=== PATIENT | male | born 1965 | race Caucasian/White ===

== ENCOUNTER 2018-04-02 19:25 | Observation (INO) | payer MEDICARE, MEDICAID ==
[2018-04-02] MEDS ORDERED: Alum-Mag Hydrox-Simethicone Susp (30 mL) PO STA (20:18)
--- NOTE | 2018-04-02 20:18 | C.PDOC ---
History Of Present Illness Patient is a 52 year old male, with a PMHx of a renal transplant in 2017, who presents to the ED for nausea and vomiting for the past 3 days. He states that he also cannot hold down any PO intake. Patient is blind and is an [employer] ontrolled diabetic living at home. Patient denies any fever, chills, diarrhea, abdominal pain, SOB, or CP. Time Seen by Provider: 04/02/18 20:06 Chief Complaint (Nursing): Abdominal Pain History Per: Patient History/Exam Limitations: no limitations Onset/Duration Of Symptoms: Days (3) Current Symptoms Are (Timing): Still Present Associated Symptoms: Nausea, Vomiting. denies: Fever, Chills, Diarrhea, Chest Pain Recent travel outside of the [place]: No Additional History Per: Patient Past Medical History Reviewed: Historical Data, Nursing Documentation, Vital Signs Vital Signs: Last Vital Signs Temp 97.8 F 04/02/18 19:31 Pulse 79 04/02/18 19:31 Resp 18 04/02/18 19:31 BP 163/79 H 04/02/18 19:31 Pulse Ox 99 04/02/18 19:31 - Medical History PMH: HTN, Hypercholesterolemia Surgical History: No Surg Hx Family History: States: No Known Family Hx - Social History Hx Alcohol Use: No Hx Substance Use: No - Immunization History Hx Tetanus Toxoid Vaccination: No Hx Influenza Vaccination: Yes Hx Pneumococcal Vaccination: Yes Review Of Systems Constitutional: Negative for: Fever, Chills Cardiovascular: Negative for: Chest Pain Respiratory: Negative for: Shortness of Breath Gastrointestinal: Positive for: Nausea, Vomiting. Negative for: Abdominal Pain, Diarrhea Physical Exam - Physical Exam Appears: Non-toxic, No Acute Distress, Other (blind ) Skin: Normal Color, Warm, Dry Head: Atraumatic, Normacephalic Oral Mucosa: Dry Neck: Normal ROM, Supple Chest: Symmetrical, No Deformity Cardiovascular: Rhythm Regular, No Murmur Respiratory: Normal Breath Sounds, No Rales, No Rhonchi, No Wheezing Gastrointestinal/Abdominal: Soft, No Tenderness, Other (larged healed surgical scar RLQ ) Extremity: Normal ROM Neurological/Psych: Normal Speech, Normal Cognition ED Course And Treatment - Laboratory Results Result Diagrams: 04/05/18 06:48 04/05/18 06:48 O2 Sat by Pulse Oximetry: 99 (on RA) Pulse Ox Interpretation: Normal Medical Decision Making Medical Decision Making: Plan: EKG Labs CXR Urinalysis Protonix 40mg IVP Zofran 4mg IVP Maalox 30ml PO Disposition Doctor Will See Patient In The: Hospital Counseled Patient/Family Regarding: Studies Performed, Diagnosis - Disposition Disposition: HOSPITALIZED Disposition Time: 23:00 Condition: GOOD - Clinical Impression Clinical Impression: Abdominal pain - Scribe Statement The provider has reviewed the documentation as recorded by the Igor Mckenzie All medical record entries made by the Igor were at my direction and personally dictated by me. I have reviewed the chart and agree that the record accurately reflects my personal performance of the history, physical exam, medical decision making, and the department course for this patient. I have also personally directed, reviewed, and agree with the discharge instructions and disposition.
[2018-04-02] MEDS ORDERED: Alum-Mag Hydrox-Simethicone Susp (30 mL) ONE (20:29)
[2018-04-02 20:30] LABS: BASO # 0.1 K/uL (0.0-0.2); EOS # 0.1 K/uL (0.0-0.7); EOS % 1.1 % (0.0-4.0); HEMOGLOBIN 15.3 g/dL (12.0-18.0); LYMPH # 0.4 K/uL (1.0-4.3); LYMPH % 5.3 % (20.0-40.0); MEAN CELL VOLUME 85.9 fL (80.0-94.0); MEAN CORPUSCULAR HGB CONC 32.6 g/dL (33.0-37.0); MEAN PLATELET VOLUME 9.5 fL (7.2-11.7); MONO # 0.7 K/uL (0.0-0.8); MONO % 8.5 % (0.0-10.0); NEUT # 6.8 K/uL (1.8-7.0); NEUT % 84.1 % (50.0-75.0); PLATELET COUNT 185 K/uL (130-400); RBC 5.46 Mil/uL (4.40-5.90); RED CELL DISTRIBUTION WIDTH 14.1 % (11.5-14.5)
[2018-04-02 20:38] LABS: PROTHROMBIN TIME 11.1 SECONDS (9.7-12.2)
[2018-04-02 20:43] LABS: BLOOD UREA NITROGEN 24 mg/dL (9-20); CALCIUM 10.3 mg/dl (8.6-10.4); GFR NON-AFRICAN AMERICAN 58
[2018-04-02 20:55] LABS: B-TYPE NATRIURETIC PEPTIDE 89.2 pg/mL (0-900)
[2018-04-02 21:01] LABS: ALB/GLOB RATIO 1.4 (1.0-2.1); ALBUMIN 4.7 g/dL (3.5-5.0); ALT/SGPT 28 U/L (21-72); AST/SGOT 51 U/L (17-59)
[2018-04-02] MEDS ORDERED: Sodium Chloride 0.9% 1,000 ML IV ONE (21:38)
[2018-04-02] MEDS ORDERED: Sodium Chloride 0.9% 1,000 ML ONE (21:57)
[2018-04-02 22:16] LABS: PLATELET ESTIMATE NORMAL (NORMAL)
[2018-04-02 22:18] LABS: ANISOCYTOSIS SLIGHT; BASOPHIL 1 % (0-2); EOSINOPHIL 2 % (0-4); HYPOCHROMIC SLIGHT; LYMPHOCYTE 6 % (20-40); MONOCYTE 8 % (0-10); NEUTROPHIL 83 % (50-75); POIKILOCYTOSIS SLIGHT; SPHEROCYTES SLIGHT; TOTAL CELLS COUNTED 100
[2018-04-02 22:19] LABS: HYPERSEGMENTATION PRESENT; LARGE PLATELETS PRESENT; SMUDGE CELLS PRESENT
[2018-04-02] MEDS: Sodium Chloride 0.9% 1,000 ML IV SCH (22:26)
[2018-04-02] MEDS ORDERED: Home Med 1 UNIT (Atorvastatin [Lipitor] 10 MG) PO SCH (23:00)
[2018-04-02] MEDS ORDERED: SODIUM BICARBONATE 650 MG PO SCH (23:00)
[2018-04-02] MEDS ORDERED: MYCOPHENOLATE SODIUM PO SCH (23:00)
[2018-04-03] MEDS: Insulin Detemir 100 units/ml Vial (Levemir) SC SCH ×2 (00:26→22:10)
[2018-04-03] MEDS: Metoprolol Succinate 50 mg XL Tab PO SCH ×3 (00:27→18:09)
[2018-04-03 06:47] LABS: BASO % 0.6 % (0.0-2.0); EOS % 0.6 % (0.0-4.0); LYMPH # 0.4 K/uL (1.0-4.3); LYMPH % 6.3 % (20.0-40.0); MEAN CELL VOLUME 86.5 fL (80.0-94.0); MEAN CORPUSCULAR HEMOGLOBIN 28.8 pg (27.0-31.0); MEAN CORPUSCULAR HGB CONC 33.3 g/dL (33.0-37.0); MEAN PLATELET VOLUME 9.3 fL (7.2-11.7); MONO # 0.7 K/uL (0.0-0.8); MONO % 10.2 % (0.0-10.0); NEUT # 5.8 K/uL (1.8-7.0); NEUT % 82.3 % (50.0-75.0); PLATELET COUNT 145 K/uL (130-400); RBC 4.15 Mil/uL (4.40-5.90); RED CELL DISTRIBUTION WIDTH 14.2 % (11.5-14.5)
[2018-04-03 07:06] LABS: ALB/GLOB RATIO 1.4 (1.0-2.1); ALBUMIN 3.1 g/dL (3.5-5.0); ALT/SGPT 37 U/L (21-72); AST/SGOT 18 U/L (17-59); BLOOD UREA NITROGEN 19 mg/dL (9-20); CALCIUM 8.3 mg/dl (8.6-10.4); GFR NON-AFRICAN AMERICAN > 60
[2018-04-03] MEDS ORDERED: Glucagon Recombinant 1 mg Inj IM PRN (07:14)
[2018-04-03] MEDS ORDERED: Dextrose 50% SYRINGE Inj (50 ml) IV PRN (07:14)
--- NOTE | 2018-04-03 07:17 | CP.PCM.PN ---
Subjective - Date & Time of Evaluation Date of Evaluation: 04/03/18 Time of Evaluation: 08:00 - Subjective Subjective: Medicine Progress Note for Dr. Argueta: Patient was seen and examined at bedside. Patient states he has been feeling nauseated for the past 2 days with vomiting. Patient states he has been having heartburn as well. Patient denies shortness of breath, chest pain, chills, fever, diarrhea and constipation. Objective - Vital Signs/Intake and Output Vital Signs (last 24 hours): Temp Pulse Resp BP Pulse Ox 97.4 F L 103 H 20 154/75 H 99 04/03/18 04:00 04/03/18 04:00 04/03/18 04:00 04/03/18 04:00 04/03/18 04:00 Intake and Output: 04/03/18 04/03/18 06:59 18:59 Intake Total 800 Output Total 500 Balance 300 - Medications Medications: Current Medications Dextrose (Glutose 15) 0 gm PO ONCE PRN; Protocol PRN Reason: Hypoglycemia Protocol Dextrose (Dextrose 50% Inj) 0 ml IV STAT PRN; Protocol PRN Reason: Hypoglycemia Protocol Glucagon (Glucagen Diagnostic Kit) 0 mg IM STAT PRN; Protocol PRN Reason: Hypoglycemia Protocol Home Med (Mycophenolate Sodium [Mycophenolic Acid]) 4 tab PO BID [facility] Last Admin: 04/03/18 00:51 Dose: Not Given Sodium Chloride (Sodium Chloride 0.9%) 1,000 mls @ 100 mls/hr IV .Q10H ONE Stop: 04/03/18 07:37 Last Admin: 04/02/18 21:56 Dose: 100 mls/hr Sodium Chloride (Sodium Chloride 0.9%) 1,000 mls @ 100 mls/hr IV .Q10H [facility] Last Admin: 04/02/18 22:26 Dose: 100 mls/hr Dextrose (Dextrose 5% In Water 1000 Ml) 1,000 mls @ 0 mls/hr IV .Q0M PRN; Protocol PRN Reason: Hypoglycemia Protocol Insulin Aspart (Novolog) 15 unit SC AC [facility] Insulin Detemir (Levemir) 50 unit SC HS [facility] Last Admin: 04/03/18 00:26 Dose: Not Given Magnesium Oxide (Mag-Ox) 400 mg PO DAILY [facility] Metoprolol Succinate (Toprol Xl) 50 mg PO BID [facility] Last Admin: 04/03/18 00:27 Dose: Not Given Multivitamins (Hexavitamin) 1 tab PO DAILY [facility] Ondansetron HCl (Zofran Inj) 4 mg IVP Q8H PRN PRN Reason: Nausea/Vomiting Pantoprazole Sodium (Protonix Inj) 40 mg IVP DAILY [facility] Prednisone (Prednisone Tab) 5 mg PO DAILY [facility] Rosuvastatin Calcium (Crestor) 5 mg PO HS [facility] Sodium Bicarbonate (Sodium Bicarbonate Tab) 650 mg PO BID [facility] Tacrolimus (Prograf Cap) 2 mg PO BID [facility] Last Admin: 04/03/18 00:26 Dose: Not Given Trimethoprim/Sulfamethoxazole (Bactrim Ss Tab) 1 tab PO MWF [facility]; Protocol - Labs Labs: 04/03/18 06:40 04/03/18 06:40 PT 11.1 SECONDS (9.7-12.2) 04/02/18 20:23 INR 1.0 04/02/18 20:23 APTT 28 SECONDS (21-34) 04/02/18 20:23 - Constitutional Appears: Agitated - Head Exam Head Exam: ATRAUMATIC, NORMAL INSPECTION - Eye Exam Additional comments: patient is legally blind in both eyes - Respiratory Exam Respiratory Exam: Clear to Ausculation Bilateral, NORMAL BREATHING PATTERN - Cardiovascular Exam Cardiovascular Exam: REGULAR RHYTHM, +S1, +S2 - GI/Abdominal Exam GI & Abdominal Exam: Soft, Tenderness (epigastric tenderness ), Normal Bowel Sounds - Extremities Exam Extremities Exam: Normal Inspection Additional comments: AV fistula in left UE - Neurological Exam Neurological Exam: Alert, Awake, Oriented x3 - Psychiatric Exam Psychiatric exam: Anxious - Skin Skin Exam: Normal Color Assessment and Plan - Assessment and Plan (Free Text) Assessment: Nausea/Vomiting - likely secondary to GERD - Medications: * Zofran 4mg IV q8prn * Protonix 40mg IV daily History of Right Renal Transplant - Completed in October 2017 - [facility]; previous appointment was last 03/29/18 - Oupatient bowling alley refinisher is Dr. Justice Menon - Nephrology Consult: Dr. Dyson --> help appreciated - Continue home Medications: * Mycophenolate 1000mg bid * Prednisone 5mg po daily * Tacrolimus 2mg po bid * Bactrim 1tab MWF History of Diabetes Type II - Continue home medications: * Levemir 50 units HS * Novolog 5 units AC * ISS- moderate - Accuchecks; Hypoglycemia Protocol History of HTN - Continue home medications: * Metoprolol Succinate 50mg bid History of HLD - Continue home medications * Crestor 5mg po HS Legally Blind - bilaterally eyes Prophylaxis: - Heparin 5,000 units SC q12h - SCDs Case discussed with Dr. Kendall Millan PGY-2
[2018-04-03] MEDS ORDERED: INSULIN LISPRO 15 UNIT SQ SCH (07:30)
[2018-04-03 07:36] LABS: URINE BILIRUBIN NEGATIVE (NEGATIVE); URINE BLOOD NEGATIVE (NEGATIVE); URINE CLARITY Clear (Clear); URINE COLOR Yellow (YELLOW); URINE GLUCOSE (UA) 3+ mg/dL (Normal); URINE LEUKOCYTE ESTERASE NEG Leu/uL (Negative); URINE PROTEIN NEGATIVE (NEGATIVE); URINE UROBILINOGEN NORMAL mg/dL (0.2-1.0)
[2018-04-03] MEDS: (Novolog) Insulin Aspart, Recombinant 100 u/ml 10 ml vial SC SCH ×4 (07:54→17:32)
[2018-04-03] MEDS: Sodium Chloride 0.9% 1,000 ML IV SCH ×2 (08:25→18:15)
[2018-04-03 09:12] LABS: ANISOCYTOSIS SLIGHT; LYMPHOCYTE 6 % (20-40); MONOCYTE 7 % (0-10); NEUTROPHIL 87 % (50-75); PLATELET ESTIMATE NORMAL (NORMAL); POIKILOCYTOSIS SLIGHT; TOTAL CELLS COUNTED 100
[2018-04-03] MEDS: Magnesium Oxide 400 mg Tab UD PO SCH (09:12)
[2018-04-03 09:13] LABS: BURR CELLS SLIGHT; HYPOCHROMIC SLIGHT; LARGE PLATELETS PRESENT; OVALOCYTES SLIGHT
[2018-04-03] MEDS: Multiple Vitamins Tab PO SCH (09:13)
[2018-04-03] MEDS ORDERED: MYCOPHENOLATE SODIUM PO SCH (10:00)
[2018-04-03] MEDS ORDERED: MULTIVITAMIN PO SCH (10:00)
--- NOTE | 2018-04-03 10:30 | RAD ---
Chest x-ray single frontal view History: Shortness of breath. Comparison: None available. Findings: Mild venous congestion. Mild patchy increased markings at the lung bases. Cardiomegaly. Tortuous ectatic aorta. Degenerative changes in the spine and shoulders. Impression: Mild venous congestion. Mild patchy increased markings at the lung bases. Cardiomegaly. Tortuous ectatic aorta. Degenerative changes in the spine and shoulders.
--- NOTE | 2018-04-03 12:16 | CARD ---
APPROVED REPORT Date of service: 04/02/2018 EKG Measurement Heart [id number] <Conclusion> Normal sinus rhythm Biatrial enlargement Abnormal ECG
[2018-04-03] MEDS: (Novolin R) Insulin Human Regular 100 units/ml vial SC SCH ×3 (12:36→21:13)
--- NOTE | 2018-04-03 22:16 | CON ---
DATE: 04/03/2018 ATTENDING PHYSICIAN: Huyen Argueta MD HISTORY OF PRESENT ILLNESS: Mr. Winnie Broderick is a 52-year-old male, who is being seen for management of a kidney transplant. Mr. Broderick has a long history of diabetes and hypertension, on dialysis for 5 years when he received a kidney transplant in 12/2017. He was recently seen at the clinic at [facility] in [place] and he was told everything was okay. Two days ago, he ate very spicy beans and subsequently developed burning in both his abdomen and chest with nausea and vomiting. This persisted for the next 24 hours. He came to the emergency room and was admitted on the 04/02/2018. His white count was 8000, hemoglobin 15.3, hematocrit 46.9; glucose was 292, sodium 137, potassium 5.3, chloride 102, CO2 of 24, BUN 24, creatinine 1.3, albumin 47. Today his white count 7000, hemoglobin 35.9; sodium 136, potassium 4.1, chloride 110, CO2 of 19, BUN 19, creatinine 1, glucose 278, calcium 8.3, albumin 3.1. Urine showed 3+ glucose, negative for protein and negative for blood. PAST MEDICAL HISTORY: Please see the above. Diabetic retinopathy with blindness. He denies myocardial infarction, stroke or neuropathy. He has been admitted to [facility]. ALLERGIES: HE HAS NO ALLERGIES. MEDICATIONS: His medications include insulin, magnesium, metoprolol, multivitamins, Protonix, prednisone, Crestor, sodium bicarbonate, Prograf, Bactrim. FAMILY HISTORY: Positive for diabetes, hypertension. SOCIAL HISTORY: Negative for alcohol or drug abuse. He does not smoke. REVIEW OF SYSTEMS: He denied chills, although he stated he felt hot. There was no chest pain. There was no cough. He did not have any diarrhea. He denied dysuria or orthostatic symptoms. PHYSICAL EXAMINATION: GENERAL: He was awake and alert, in no acute distress. VITAL SIGNS: His temperature was 98.1, his blood pressure was 138/81, his pulse was 107. NECK: There was no jugular venous fashion at 30 degrees. LUNGS: Clear. HEART: Rhythm was regular. ABDOMEN: Soft and nontender. The graft in the right lower quadrant was enlarged or tender. EXTREMITIES: There was no CVA tenderness or presacral edema and he moved all his extremities. IMPRESSION: Post kidney transplant, diabetic nephropathy, hypertension, diabetic retinopathy, and gastroenteritis. RECOMMENDATIONS: Agree with IV fluids with normal saline. We will review home meds to make sure he is not on CellCept or Myfortic, will maintain present immunosuppression with prednisone and Prograf. We will check tacrolimus levels. Thank you for your kind referral. We will continue to follow with you. Harry Zimmer MD
--- NOTE | 2018-04-04 06:17 | HP ---
HISTORY OF PRESENT ILLNESS: This is a 52-year-old male with history of diabetes, history of kidney transplant with chief complaint of nausea, vomiting, intractable following eating some lentils. The patient came to ER, failed emergency room management, advised admission. PHYSICAL EXAMINATION: GENERAL: The patient is awake, alert, and oriented. VITAL SIGNS: Temperature 98, pulse 90. HEENT: Within normal limits. NECK: Supple. CHEST: Symmetrical. HEART: Regular. ABDOMEN: Tender . EXTREMITIES: No edema. He has a scar from his previous surgery. IMPRESSION AND PLAN: The patient suffers from gastritis, status post kidney transplant, diabetes. The patient is to get bedrest, supportive care, IV fluids, antiemetics. Nephrology consult. Huyen Argueta MD
[2018-04-04] MEDS: Sodium Chloride 0.9% 1,000 ML IV SCH ×2 (06:31→18:19)
[2018-04-04 06:45] LABS: BASO % 0.9 % (0.0-2.0); EOS # 0.1 K/uL (0.0-0.7); HEMOGLOBIN 13.7 g/dL (12.0-18.0); LYMPH # 0.5 K/uL (1.0-4.3); LYMPH % 9.3 % (20.0-40.0); MEAN CELL VOLUME 86.2 fL (80.0-94.0); MEAN CORPUSCULAR HEMOGLOBIN 28.4 pg (27.0-31.0); MEAN PLATELET VOLUME 9.4 fL (7.2-11.7); MONO # 0.6 K/uL (0.0-0.8); MONO % 10.6 % (0.0-10.0); NEUT # 4.2 K/uL (1.8-7.0); NEUT % 77.2 % (50.0-75.0); NRBC % 0.1 % (0.0-2.0); PLATELET COUNT 165 K/uL (130-400); RBC 4.81 Mil/uL (4.40-5.90); RED CELL DISTRIBUTION WIDTH 14.4 % (11.5-14.5); WHITE BLOOD COUNT 5.5 K/uL (4.8-10.8)
[2018-04-04 06:59] LABS: ALB/GLOB RATIO 1.6 (1.0-2.1); ALBUMIN 3.7 g/dL (3.5-5.0); ALT/SGPT 28 U/L (21-72); AST/SGOT 26 U/L (17-59); BLOOD UREA NITROGEN 14 mg/dL (9-20); CALCIUM 9.7 mg/dl (8.6-10.4); GFR NON-AFRICAN AMERICAN > 60; HDL CHOLESTEROL 35 mg/dL (30-70)
[2018-04-04 07:09] LABS: LDL CHOLESTEROL 58 mg/dL (0-129)
[2018-04-04] MEDS: (Novolog) Insulin Aspart, Recombinant 100 u/ml 10 ml vial SC SCH ×3 (07:30→18:14)
--- NOTE | 2018-04-04 07:35 | CP.PCM.PN ---
Subjective - Date & Time of Evaluation Date of Evaluation: 04/04/18 Time of Evaluation: 07:30 - Subjective Subjective: Progress note for Dr. Argueta Patient was seen and examined at bedside in no acute distress. Patient reports feeling better, but still has a burning sensation in his stomach/chest after eating. He states medication has been helping. The patient denies chest pain, palpitations, dyspnea, nausea, vomiting, fevers, headaches, leg pain. No acute events overnight per nursing. Objective - Vital Signs/Intake and Output Vital Signs (last 24 hours): Temp Pulse Resp BP Pulse Ox 97.8 F 90 20 141/79 98 04/03/18 23:05 04/03/18 23:05 04/03/18 23:05 04/03/18 23:05 04/03/18 23:05 Intake and Output: 04/04/18 04/04/18 06:59 18:59 Intake Total 1200 Output Total 800 Balance 400 - Medications Medications: Current Medications Dextrose (Glutose 15) 0 gm PO ONCE PRN; Protocol PRN Reason: Hypoglycemia Protocol Dextrose (Dextrose 50% Inj) 0 ml IV STAT PRN; Protocol PRN Reason: Hypoglycemia Protocol Glucagon (Glucagen Diagnostic Kit) 0 mg IM STAT PRN; Protocol PRN Reason: Hypoglycemia Protocol Heparin Sodium (Porcine) (Heparin) 5,000 units SC Q12 [facility] Last Admin: 04/03/18 21:31 Dose: 5,000 units Sodium Chloride (Sodium Chloride 0.9%) 1,000 mls @ 100 mls/hr IV .Q10H [facility] Last Admin: 04/04/18 06:31 Dose: 100 mls/hr Dextrose (Dextrose 5% In Water 1000 Ml) 1,000 mls @ 0 mls/hr IV .Q0M PRN; Protocol PRN Reason: Hypoglycemia Protocol Insulin Aspart (Novolog) 15 unit SC AC [facility] Last Admin: 04/03/18 17:32 Dose: Not Given Insulin Detemir (Levemir) 50 unit SC HS [facility] Last Admin: 04/03/18 22:10 Dose: 50 units Insulin Human Regular (Novolin R) 0 unit SC ACHS [facility]; Protocol Last Admin: 04/03/18 21:13 Dose: Not Given Magnesium Oxide (Mag-Ox) 400 mg PO DAILY [facility] Last Admin: 04/03/18 09:12 Dose: 400 mg Metoprolol Succinate (Toprol Xl) 50 mg PO BID [facility] Last Admin: 04/03/18 18:09 Dose: 50 mg Multivitamins (Hexavitamin) 1 tab PO DAILY [facility] Last Admin: 04/03/18 09:13 Dose: 1 tab Mycophenolate Mofetil (Cellcept) 1,000 mg PO BID [facility] Last Admin: 04/03/18 21:27 Dose: 1,000 mg Ondansetron HCl (Zofran Inj) 4 mg IVP Q8H PRN PRN Reason: Nausea/Vomiting Last Admin: 04/03/18 09:13 Dose: 4 mg Pantoprazole Sodium (Protonix Inj) 40 mg IVP DAILY [facility] Last Admin: 04/03/18 09:13 Dose: 40 mg Prednisone (Prednisone Tab) 5 mg PO DAILY [facility] Last Admin: 04/03/18 09:13 Dose: 5 mg Rosuvastatin Calcium (Crestor) 5 mg PO HS [facility] Last Admin: 04/03/18 21:28 Dose: 5 mg Sodium Bicarbonate (Sodium Bicarbonate Tab) 650 mg PO BID [facility] Last Admin: 04/03/18 18:05 Dose: 650 mg Tacrolimus (Prograf Cap) 2 mg PO BID [facility] Last Admin: 04/03/18 21:28 Dose: 2 mg Trimethoprim/Sulfamethoxazole (Bactrim Ss Tab) 1 tab PO [facility] [place]; Protocol - Labs Labs: 04/04/18 06:32 04/04/18 06:32 PT 11.1 SECONDS (9.7-12.2) 04/02/18 20:23 INR 1.0 04/02/18 20:23 APTT 28 SECONDS (21-34) 04/02/18 20:23 - Constitutional Appears: No Acute Distress - Head Exam Head Exam: ATRAUMATIC, NORMAL INSPECTION - Eye Exam Additional comments: Blind bilaterally - ENT Exam ENT Exam: Mucous Membranes Moist - Respiratory Exam Respiratory Exam: Clear to Ausculation Bilateral, NORMAL BREATHING PATTERN. absent: Rhonchi, Wheezes, Respiratory Distress - Cardiovascular Exam Cardiovascular Exam: REGULAR RHYTHM, +S1, +S2 - GI/Abdominal Exam GI & Abdominal Exam: Soft, Tenderness (epigastric, mild), Normal Bowel Sounds. absent: Distended, Firm, Guarding - Extremities Exam Extremities Exam: Normal Inspection. absent: Pedal Edema, Tenderness - Neurological Exam Neurological Exam: Alert, Awake, Oriented x3 - Psychiatric Exam Psychiatric exam: Normal Affect, Normal Mood - Skin Skin Exam: Dry, Normal Color, Warm Assessment and Plan - Assessment and Plan (Free Text) Plan: Nausea/Vomiting - likely secondary to GERD - Medications: * Zofran 4mg IV q8prn * Protonix 40mg IV daily History of Right Renal Transplant - Completed in October 2017 - [facility]; previous appointment was last 03/29/18 - Oupatient president educational institution is Dr. Justice Menon - Nephrology Consult: Dr. Dyson --> help appreciated * Per president educational institution: aggressive IVFs, continue immunosuppression w/ prednisone and prograf * Tacrolimus levels: f/u - Continue home Medications: * Mycophenolate 1000mg bid * Prednisone 5mg po daily * Tacrolimus 2mg po bid * Bactrim 1tab MWF History of Diabetes Type II - Continue home medications: * Levemir 50 units HS * Novolog 15 units AC * ISS- moderate - Accuchecks; Hypoglycemia Protocol - A1c: 8.3 History of HTN - Continue home medications: Metoprolol Succinate 50mg bid History of HLD - Continue home medications: Crestor 5mg po HS - TG 159, Chol 107, LDL 58, HDL 35 Legally Blind - Bilaterally Prophylaxis: - Heparin 5,000 units SC q12h. SCDs - GI: Protonix 40mg IV daily Case discussed with and patient seen with Dr. Kendall Marshall, PGY2
[2018-04-04] MEDS: (Novolin R) Insulin Human Regular 100 units/ml vial SC SCH ×4 (08:17→21:24)
[2018-04-04 08:29] LABS: EOSINOPHIL 2 % (0-4); LYMPHOCYTE 9 % (20-40); TOTAL CELLS COUNTED 100
[2018-04-04 08:30] LABS: HYPOCHROMIC SLIGHT; MONOCYTE 12 % (0-10); NEUTROPHIL 77 % (50-75); OVALOCYTES SLIGHT; PLATELET ESTIMATE NORMAL (NORMAL)
[2018-04-04] MEDS ORDERED: Tmp-Smz 400 mg-80 mg SS Tab PO SCH (09:00)
[2018-04-04] MEDS: Metoprolol Succinate 50 mg XL Tab PO SCH ×2 (09:24→18:22)
[2018-04-04] MEDS: Magnesium Oxide 400 mg Tab UD PO SCH (09:24)
[2018-04-04] MEDS: Multiple Vitamins Tab PO SCH (09:24)
[2018-04-04] MEDS ORDERED: Dorzolamide 2% Opht Sol 10ml OU SCH (18:00)
[2018-04-04] MEDS: Insulin Detemir 100 units/ml Vial (Levemir) SC SCH (21:29)
[2018-04-04] MEDS ORDERED: Latanoprost 2.5 ml Opht Soln OU SCH (22:00)
[2018-04-05 01:17] VITALS: RESP 20
[2018-04-05 01:21] VITALS: TEMP 98.1
[2018-04-05] MEDS: Sodium Chloride 0.9% 1,000 ML IV SCH ×2 (04:21→10:43)
[2018-04-05 07:24] LABS: BASO % 0.9 % (0.0-2.0); EOS # 0.1 K/uL (0.0-0.7); EOS % 2.5 % (0.0-4.0); HEMOGLOBIN 12.5 g/dL (12.0-18.0); LYMPH # 0.4 K/uL (1.0-4.3); LYMPH % 9.2 % (20.0-40.0); MEAN CELL VOLUME 86.5 fL (80.0-94.0); MEAN CORPUSCULAR HEMOGLOBIN 28.7 pg (27.0-31.0); MEAN CORPUSCULAR HGB CONC 33.1 g/dL (33.0-37.0); MEAN PLATELET VOLUME 9.4 fL (7.2-11.7); MONO # 0.6 K/uL (0.0-0.8); MONO % 12.1 % (0.0-10.0); NEUT # 3.6 K/uL (1.8-7.0); NEUT % 75.3 % (50.0-75.0); NRBC % 0.1 % (0.0-2.0); PLATELET COUNT 154 K/uL (130-400); RBC 4.35 Mil/uL (4.40-5.90); WHITE BLOOD COUNT 4.8 K/uL (4.8-10.8)
[2018-04-05 07:28] LABS: ALB/GLOB RATIO 1.2 (1.0-2.1); ALBUMIN 2.3 g/dL (3.5-5.0); ALT/SGPT 25 U/L (21-72); AST/SGOT 15 U/L (17-59); BLOOD UREA NITROGEN 12 mg/dL (9-20); GFR NON-AFRICAN AMERICAN > 60
--- NOTE | 2018-04-05 07:30 | CP.PCM.PN ---
Subjective - Date & Time of Evaluation Date of Evaluation: 04/05/18 Time of Evaluation: 07:28 - Subjective Subjective: Progress note for Dr. Argueta Patient was seen and examined at bedside in no acute distress. He says he is "feeling much better than yesterday". The patient denies chest pain, palpitations, dyspnea, nausea, vomiting, fevers, headaches, leg pain. No acute events overnight per nursing. Objective - Vital Signs/Intake and Output Vital Signs (last 24 hours): Temp Pulse Resp BP Pulse Ox 98.1 F 88 20 113/70 98 04/04/18 23:15 04/04/18 23:15 04/04/18 23:15 04/04/18 23:15 04/04/18 23:15 Intake and Output: 04/05/18 04/05/18 06:59 18:59 Intake Total 1100 Output Total 400 Balance 700 - Medications Medications: Current Medications Dextrose (Glutose 15) 0 gm PO ONCE PRN; Protocol PRN Reason: Hypoglycemia Protocol Dextrose (Dextrose 50% Inj) 0 ml IV STAT PRN; Protocol PRN Reason: Hypoglycemia Protocol Dorzolamide HCl (Trusopt) 1 ml OU BID [facility] Last Admin: 04/04/18 21:33 Dose: 1 drop Glucagon (Glucagen Diagnostic Kit) 0 mg IM STAT PRN; Protocol PRN Reason: Hypoglycemia Protocol Heparin Sodium (Porcine) (Heparin) 5,000 units SC Q12 [facility] Last Admin: 04/04/18 21:28 Dose: 5,000 units Sodium Chloride (Sodium Chloride 0.9%) 1,000 mls @ 100 mls/hr IV .Q10H [facility] Last Admin: 04/05/18 04:21 Dose: 100 mls/hr Dextrose (Dextrose 5% In Water 1000 Ml) 1,000 mls @ 0 mls/hr IV .Q0M PRN; Protocol PRN Reason: Hypoglycemia Protocol Insulin Aspart (Novolog) 15 unit SC AC [facility] Last Admin: 04/04/18 18:14 Dose: 15 unit Insulin Detemir (Levemir) 50 unit SC HS [facility] Last Admin: 04/04/18 21:29 Dose: 50 units Insulin Human Regular (Novolin R) 0 unit SC ACHS [facility]; Protocol Last Admin: 04/04/18 21:24 Dose: Not Given Latanoprost (Xalatan Opht) 0 ml OU HS [facility] Last Admin: 04/04/18 21:29 Dose: 2.5 ml Magnesium Oxide (Mag-Ox) 400 mg PO DAILY [facility] Last Admin: 04/04/18 09:24 Dose: 400 mg Metoprolol Succinate (Toprol Xl) 50 mg PO BID [facility] Last Admin: 04/04/18 18:22 Dose: 50 mg Multivitamins (Hexavitamin) 1 tab PO DAILY [facility] Last Admin: 04/04/18 09:24 Dose: 1 tab Mycophenolate Mofetil (Cellcept) 1,000 mg PO BID [facility] Last Admin: 04/04/18 18:14 Dose: 1,000 mg Ondansetron HCl (Zofran Inj) 4 mg IVP Q8H PRN PRN Reason: Nausea/Vomiting Last Admin: 04/03/18 09:13 Dose: 4 mg Pantoprazole Sodium (Protonix Inj) 40 mg IVP DAILY [facility] Last Admin: 04/04/18 09:24 Dose: 40 mg Prednisone (Prednisone Tab) 5 mg PO DAILY [facility] Last Admin: 04/04/18 09:24 Dose: 5 mg Rosuvastatin Calcium (Crestor) 5 mg PO HS [facility] Last Admin: 04/04/18 21:28 Dose: 5 mg Sodium Bicarbonate (Sodium Bicarbonate Tab) 650 mg PO BID [facility] Last Admin: 04/04/18 18:14 Dose: 650 mg Tacrolimus (Prograf Cap) 2 mg PO BID [facility] Last Admin: 04/04/18 18:14 Dose: 2 mg Timolol Maleate (Timoptic 0.5% Ophth Soln) 0 drop OU BID [facility] Last Admin: 04/04/18 18:24 Dose: 1 drop Trimethoprim/Sulfamethoxazole (Bactrim Ss Tab) 1 tab PO F [facility]; Protocol Last Admin: 04/04/18 09:00 Dose: 1 tab - Labs Labs: 04/04/18 06:32 04/04/18 06:32 PT 11.1 SECONDS (9.7-12.2) 04/02/18 20:23 INR 1.0 04/02/18 20:23 APTT 28 SECONDS (21-34) 04/02/18 20:23 - Additional Findings Additional findings: - Constitutional Appears: No Acute Distress - Head Exam Head Exam: ATRAUMATIC, NORMAL INSPECTION - Eye Exam Additional comments: Blind bilaterally - ENT Exam ENT Exam: Mucous Membranes Moist - Respiratory Exam Respiratory Exam: Clear to Ausculation Bilateral, NORMAL BREATHING PATTERN. absent: Rhonchi, Wheezes, Respiratory Distress - Cardiovascular Exam Cardiovascular Exam: REGULAR RHYTHM, +S1, +S2 - GI/Abdominal Exam GI & Abdominal Exam: Soft, Normal Bowel Sounds. absent: Distended, Firm, Guarding, Tenderness - Extremities Exam Extremities Exam: Normal Inspection. absent: Pedal Edema, Tenderness - Neurological Exam Neurological Exam: Alert, Awake, Oriented x3 - Psychiatric Exam Psychiatric exam: Normal Affect, Normal Mood - Skin Skin Exam: Dry, Normal Color, Warm Assessment and Plan - Assessment and Plan (Free Text) Plan: GERD - Nausea and vomiting resolved - Per the patient, the medications relieve patients symptoms (symptoms occur after eating) - Medications: * Zofran 4mg IV q8prn * Protonix 40mg IV daily History of Right Renal Transplant - Completed in October 2017 - [facility]; previous appointment was last 03/29/18 - Oupatient chief operator lock tender is Dr. Justice Menon - Nephrology Consult: Dr. Dyson --> help appreciated * Per chief operator lock tender: aggressive IVFs, continue immunosuppression w/ prednisone and prograf * Tacrolimus levels: f/u - Continue home Medications: * Mycophenolate 1000mg bid * Prednisone 5mg po daily * Tacrolimus 2mg po bid * Bactrim 1tab MWF History of Diabetes Type II - Continue home medications: * Levemir 50 units HS * Novolog 15 units AC * ISS- moderate - Accuchecks; Hypoglycemia Protocol - A1c: 8.3 History of HTN - Continue home medications: Metoprolol Succinate 50mg bid History of HLD - Continue home medications: Crestor 5mg po HS - TG 159, Chol 107, LDL 58, HDL 35 Legally Blind - Bilaterally Prophylaxis: - Heparin 5,000 units SC q12h. SCDs - GI: Protonix 40mg IV daily Case discussed with and patient seen with Dr. Kendall Marshall, PGY2 Patient is stable for discharge to home per Dr. Argueta. Patient must continue home medications. Patient must take the following new medications: Protonix 40mg PO Daily- take 1 tablet by mouth once a day. Please increase the following medication to Magnesium 400mg - take 2 tablets twice a day. Patient must follow up with PMD, Dr. Argueta, within one week of discharge. Patient must follow up with chief operator lock tender, Dr. Dyson, within one week of disc harge. If symptoms worsen or reoccur, patient should return to the nearest emergency room.
[2018-04-05] MEDS: (Novolog) Insulin Aspart, Recombinant 100 u/ml 10 ml vial SC SCH ×2 (07:43→12:05)
[2018-04-05] MEDS: (Novolin R) Insulin Human Regular 100 units/ml vial SC SCH ×2 (07:44→12:06)
[2018-04-05] MEDS ORDERED: Potassium Chloride 20 mEq ER Tab PO ONE (08:00)
[2018-04-05 08:24] VITALS: BP 154/93; PULSE 75
[2018-04-05 08:33] LABS: EOSINOPHIL 3 % (0-4); LYMPHOCYTE 10 % (20-40); MONOCYTE 11 % (0-10); NEUTROPHIL 76 % (50-75); PLATELET ESTIMATE NORMAL (NORMAL); TOTAL CELLS COUNTED 100
[2018-04-05 08:34] LABS: OVALOCYTES SLIGHT
[2018-04-05 08:35] LABS: BURR CELLS SLIGHT; PLATELET CLUMPS PRESENT
[2018-04-05] MEDS: Magnesium Oxide 400 mg Tab UD PO SCH (09:22)
[2018-04-05] MEDS: Metoprolol Succinate 50 mg XL Tab PO SCH (09:22)
[2018-04-05] MEDS: Multiple Vitamins Tab PO SCH (09:22)
[2018-04-05] MEDS ORDERED: Dorzolamide 2% Opht Sol 10ml OU SCH (10:00)
[2018-04-05] MEDS ORDERED: Potassium & Sodium Phosphate PO ONE (11:30)
[2018-04-05] MEDS ORDERED: Magnesium Oxide 400 mg Tab UD PO SCH (18:00)
[2018-04-06 23:37] VITALS: O2SAT 99
== END 2018-04-05 14:02 | disposition home or self-care (01) ==
LOC: C.ER 19:25 → C.9E 21:40 → C.6T 22:04
PROVIDERS: ADMIT Internal Medicine Pulmonary Disease; ATTEND Internal Medicine Pulmonary Disease
DX: K21.9 Gastro-esophageal reflux disease without esophagitis (principal); K29.70 Gastritis, unspecified, without bleeding; E11.21 Type 2 diabetes mellitus with diabetic nephropathy; K52.9 Noninfective gastroenteritis and colitis, unspecified; Z94.0 Kidney transplant status; E11.319 Type 2 diabetes mellitus with unspecified diabetic retinopathy without macular edema; E11.65 Type 2 diabetes mellitus with hyperglycemia; E78.00 Pure hypercholesterolemia, unspecified; H54.7 Unspecified visual loss; I10 Essential (primary) hypertension
CPT/HCPCS: 36415; 71045; 80053; 80061; 80197; 81001; 82948; 83036; 83735; 83880; 84100; 84484; 85025; 85610; 85730; 93005; 96361; 96372; 96374; 96375; 96376; 97116; 97162; 99284; C9113; G0378; G8978; G8979; J1644; J2405; J7030; J7507; J7517